=== PATIENT | male | born 1980 | race Caucasian/White ===

== ENCOUNTER 2018-07-11 14:07 | Emergency (ER) | payer SELFPAY ==
[~2018-07-11] VITALS: Ht 182.9 cm; Wt 79.4 kg
[2018-07-11 15:19] VITALS: BP 158/111
[2018-07-11] MEDS ORDERED: PENI500T PO (15:23)
[2018-07-11] MEDS ORDERED: HYDR-3164 PO (15:23)
--- NOTE | 2018-07-11 15:23 | PHYS DOC ---
Adult General Chief Complaint Chief Complaint: DENTAL PROBLEM HPI HPI 38 y/o male presents to ER for c/o lt upper dental pain/swelling for past 2-3 days which has gradually worsened. He reports pain and swelling got so bad last night he self extricated his tooth which was decayed causing the pain. (ADOLFO GUTIERREZ APRN) Review of Systems Review of Systems Constitutional: Denies fever or chills [] Eyes: Denies change in visual acuity, redness, or eye pain [] HENT: Denies nasal congestion or sore throat. Reports lt upper gum swelling/ pain at site where he pulled his tooth last night- lt facial swelling. Denies difficulty swallowing. Respiratory: Denies cough or shortness of breath [] Cardiovascular: No additional information not addressed in HPI [] GI: Denies abdominal pain, nausea, vomiting, bloody stools or diarrhea [] : Denies dysuria or hematuria [] Musculoskeletal: Denies back/neck pain or joint pain [] Integument: Denies rash or skin lesions [] Neurologic: Denies headache, focal weakness or sensory changes. Denies dizziness All other systems were reviewed and found to be within normal limits, except as documented in this note. (ADOLFO GUTIERREZ APRN) Current Medications Current Medications Current Medications Medications (Trade) Dose Ordered Sig/Kasandra Start Time Stop Time Status Last Admin Dose Admin Ibuprofen (Motrin) 800 mg 1X ONCE 07/11/18 15:30 07/11/18 15:31 DC 07/11/18 15:28 800 MG (KAY GARNICA MD) Allergies Allergies Allergies Coded Allergies Type Severity Reaction Last Updated Verified No Known Drug Allergies 07/11/18 No (KAY GARNICA MD) Physical Exam Physical Exam Constitutional: Well developed, well nourished, no acute distress, non-toxic appearance. [] HENT: Normocephalic, atraumatic, bilateral ears normal, oropharynx moist, swelling and erythema lt upper posterior gum line at back molars- mult. caries. No palp. abscess. Small canker sore upper gumline at area of swelling- no bleeding. Palate soft/, nose normal. Gum site where lt upper molar was pulled has no bleeding or palp. tooth fragment. Small hematoma on inner lt side cheek- no active bleeding/palp. abscess. Lt cheek swelling-tender on palp. no wounds on cheek. No erythema/ecchymosis. Pt swallowing without difficulty. No pharyngeal/tonsillar swelling/erythema. Uvula midline[] Eyes: Pupils equal, no nystagmus, conjunctiva normal, no discharge. [] Neck: Normal range of motion, no tenderness, supple, no stridor/gross adenopathy Cardiovascular: Heart rate regular Lungs & Thorax: Resp. equal/nonlabored Skin: Warm, dry, no erythema, no rash. [] Extremities: ROM intact, no edema. [] Neurologic: Alert and oriented X 3, normal motor function, normal sensory function, no focal deficits noted. [] Psychologic: Affect normal, judgement normal, mood normal. [] (ADOLFO GUTIERREZ APRN) Current Patient Data Vital Signs Vital Signs Date Time Temp Pulse Resp B/P (MAP) Pulse Ox O2 Delivery O2 Flow Rate FiO2 07/11/18 15:19 98.4 90 18 158/111 (127) 100 Room Air 98.4 (KAY GARNICA MD) EKG EKG [] (ADOLFO GUTIERREZ APRN) Radiology/Procedures Radiology/Procedures [] (ADOLFO GUTIERREZ APRN) Course & Med Decision Making Course & Med Decision Making Pt was evaluated in the ER for complaints of left upper dental pain, gum swelling, and facial swelling. Patient reports he self extricated a decayed upper left back molar last night due to pain. Patient states he has had no active bleeding today however with ongoing facial and gum swelling and pain he came to the ER for evaluation. Patient denies fever, difficulty chewing or swallowing, fever, eye pain, or earache. Patient states he has used an aspirin pace on area where he pulled his tooth and been doing warm salt swishes. Patient denies being a smoker. Pt at time of d/c BP 152/105 he reports he tends to have elevated BP at doctor' s appts-advised on need for f/u for BP recheck. Will provide community resources on clinics and physicians as well as dental clinics for follow-up purposes. (ADOLFO GUTIERREZ APRN) Course & Med Decision Making Staff Physician Addendum: I was working in the ER during the course of this patient's visit. I was available for consultation as needed, but I was not directly involved in the care of this patient. (KAY GARNICA MD) Dragon Disclaimer Dragon Disclaimer This electronic medical record was generated, in whole or in part, using a voice recognition dictation system. (ADOLFO GUTIERREZ APRN) Departure Departure Impression: Primary Impression: Pain, dental Additional Impression: Swelling of gums Disposition: HOME, SELF-CARE Condition: STABLE Referrals: NO PCP (PCP) Patient Instructions: Dental Caries, Teeth and Gum Care, [id number] Additional Instructions: Drink plenty of water. Warm salty swishes multiple times daily. Avoid poking or pushing on gums and spot where you pulled your tooth. You need to call [facility] to schedule appointment with dentist for further evaluation and care- to ensure the entire tooth was pulled out. Tylenol and/or Ibuprofen as directed on container for pain control- avoid tylenol if taking the [place] tablets. Scripts Penicillin V Potassium (PENICILLIN V POTASSIUM) 500 Mg Tablet 1 TAB PO TID, #30 TAB 0 Refills Prov: ADOLFO GUTIERREZ APRN 07/11/18 Hydrocodone/Apap 5-325 (NORCO 5-325 TABLET) 1 Each Tablet 1 TAB PO PRN Q6HRS PRN for PAIN, #8 TAB 0 Refills No drinking alcohol or driving while taking Prov: ADOLFO GUTIERREZ APRN 07/11/18 Problem Qualifiers ADOLFO GUTIERREZ APRN Jul 11, 2018 15:23 KAY GARNICA MD Jul 11, 2018 17:30
[2018-07-11] MEDS ORDERED: IBUPROFEN 400 MG TABLET. PO ONE (15:30)
== END 2018-07-11 15:33 | disposition home or self-care (01) ==
LOC: ER 14:07
DX: K04.7 Periapical abscess without sinus (principal); K12.0 Recurrent oral aphthae
CPT/HCPCS: 99283